=== PATIENT | female | born 1970 ===

== ENCOUNTER 2018-11-15 13:10 | Emergency (ER) | payer OTHER ==
[2018-11-15 14:50] VITALS: BP 139/79
[2018-11-15] MEDS ORDERED: Ibuprofen TAB* 600 MG PO ONE (15:45)
--- NOTE | 2018-11-15 15:45 | UC ---
Back Pain HPI - HPI Summary HPI Summary: 48-year-old woman comes in with a chief complaint of low back pain and neck pain that started on November 13, 2018 while lifting boxes at work. Patient reports lifting heavy boxes and that is when the pain started. Pain is in the low back and it radiates down the right leg. Also she's having neck pain. Both areas of pain are worse with twisting turning bending. Denies any weakness or numbness or difficulty controlling urine or bowels. She has no headache. She feels well otherwise. Pain at its worse is a 10 out of 10. She has been taking a Proventil which does help some with the pain. On triage patient found to have a fever of 101. Patient said she did not know she had a fever denies any dysuria. She has a chronic runny nose. No sore throat she does have a dry cough. No abdominal pain no dysuria. She reports that she's had a history of chronic Lyme disease but does not relate having fevers associated with the chronic Lyme disease. - History of Current Complaint Chief Complaint: UCBackPain Stated Complaint: BACK INJURY Time Seen by Provider: 11/15/18 15:15 Hx Last Menstrual Period: 11/07/18 Pain Intensity: 8 - Allergies/Home Medications Allergies/Adverse Reactions: Allergies Allergy/AdvReac Type Severity Reaction Status Date / Time Penicillins Allergy Intermediate Hives Verified 11/15/18 14:50 Home Medications: Home Medications Metoprolol/Hydrochlorothiazide [Metoprolol-Hctz 100-25 mg Tab] 1 tab PO Q8HR PRN 11/15/18 [History Confirmed 11/15/18] PMH/Surg Hx/FS Hx/Imm Hx Previously Healthy: Yes - REPORTS CHRONIC LYME DX Cardiovascular History: Other - SVT - Surgical History Surgical History: None - Family History Known Family History: Positive: Non-Contributory - Social History Alcohol Use: None Substance Use Type: None Smoking Status (MU): Never Smoked Tobacco Review of Systems All Other Systems Reviewed And Are Negative: Yes Constitutional: Positive: Negative Skin: Positive: Negative Eyes: Positive: Negative ENT: Positive: Nasal Discharge Respiratory: Positive: Cough Cardiovascular: Positive: Negative Gastrointestinal: Positive: Negative Genitourinary: Positive: Negative. Negative: Dysuria Motor: Positive: Negative Neurovascular: Negative: Decreased Sensation Musculoskeletal: Positive: Other: - SEE HPI Neurological: Positive: Negative. Negative: Headache, Weakness, Paresthesia, Numbness Psychological: Positive: Negative Is Patient Immunocompromised?: No Physical Exam Triage Information Reviewed: Yes Appearance: Well-Appearing, Well-Nourished, Pain Distress - MILD WITH ROM NECK AND LOW BACK Vital Signs: Initial Vital Signs Temp 101.1 F 11/15/18 14:44 Pulse 79 11/15/18 14:44 Resp 16 11/15/18 14:44 BP 139/79 11/15/18 14:44 Pulse Ox 99 11/15/18 14:44 Vital Signs Reviewed: Yes Eye Exam: Normal Eyes: Positive: Conjunctiva Clear ENT: Positive: Pharynx normal, TMs normal Neck: Positive: Tenderness @ - PARASPINOUS MUSCLES B/L TENDER TO PALPATION. PAIN WITH TURNING HEAD SIDE TO SIDE. Respiratory Exam: Normal Respiratory: Positive: Lungs clear, Normal breath sounds, No respiratory distress Cardiovascular: Positive: RRR Abdomen Description: Negative: CVA Tenderness (R), CVA Tenderness (L) Musculoskeletal: Positive: Other: - Patient is tender to palpation in the paraspinous muscles of the neck. She reports pain when she turns her head to the left and to the right. Arms have full range of motion full-strength with normal radial pulses normal sensation. Low back is tender in the lower lumbar area midline and also adjacent to the lower lumbar and the L5 area. There is no flank pain. Legs have normal plantarflexion and dorsiflexion knee flexion extension with full strength. Hip flexion on both sides does not increase the pain in the back and has full strength. Patellar reflexes 2+ bilaterally. Neurological: Positive: Alert, Muscle Tone Normal Psychological Exam: Normal Psychological: Positive: Age Appropriate Behavior Skin Exam: Normal Back Pain Course/Dx - Course Course Of Treatment: Patient has neck and low back pain that started acutely while lifting heavy boxes at work by history. Pain does radiate down the right leg also. This is all consistent with musculoskeletal strain. Return to treat with ibuprofen and Flexeril and follow up with occupational medicine. Patient will be out of work until cleared by medical provider. On triage patient found to have a fever of 101. Patient was not aware she had a fever. Temperature was rechecked and found to be 100.8. Patient has no sore throat she does have a little bit of runny nose and dry cough she has no flank pain no abdominal pain. She has no headache. She does have some white blood cells and blood in her urine. No UTI symptoms. Her neck does hurt when she moves it which is consistent with musculoskeletal injury. we discussed the signs and symptoms of meningitis which almost always includes headache neck pain and back pain and feeling ill. At this time she does not have all of the symptoms so she clinically does not have meningitis. I let her know if she gets this combination of symptoms she needs to go the emergency department for further evaluation and care. With the white blood cells and the blood in the urine we'll treat with Macrobid for presumed UTI. I also let the patient know that if she did continue to get worse she needs to get reevaluated in the emergency room. - Differential Dx/Diagnosis Provider Diagnosis: Low back pain radiating to right leg, Acute neck pain, UTI (urinary tract infection), Fever Discharge - Sign-Out/Discharge Documenting (check all that apply): Patient Departure All imaging exams completed and their final reports reviewed: No Studies - Discharge Plan Condition: Stable Disposition: HOME Prescriptions: Cyclobenzaprine TAB* [Flexeril 10 MG TAB*] 10 mg PO TID PRN #15 tab MDD 3 PRN Reason: Pain Ibuprofen TAB* [Motrin TAB* 600 MG] 600 mg PO Q6H PRN #30 tab PRN Reason: Pain Nitrofurantoin Monohyd/M-Cryst [Macrobid 100 mg Capsule] 100 mg PO BID #20 cap Patient Education Materials: Urinary Tract Infection in Women (ED), Fever in Adults (ED), Acute Low Back Pain (ED), Lumbar Radiculopathy (ED), Lower Back Exercises (ED), Acute Neck Pain (ED) Forms: *Work Release Referrals: Dany Velez MD [Medical Doctor] - Additional Instructions: FOLLOW UP WITH OCCUPATIONAL MEDICINE, DR VELEZ, FOR YOUR BACK AND NECK PAIN. FOLLOW UP WITH YOUR PRIMARY CARE DOCTOR FOR THE FEVER AND POSSIBLE UTI. IF YOU FEEL LIKE YOU HAVE AN INFECTION THAT IS NOT IMPROVING OR GETTING WORSE, GO TO THE EMERGENCY DEPARTMENT. GET REEVALUATED SOONER FOR ANY WORSENING OF YOUR CONDITION; WEAKNESS, NUMBNESS, HEADACHE, YOU FEEL ILL, CONTINUED FEVER, DIFFICULTY CONTROLLING BOWEL OR BLADDER OR ANY QUESTIONS OR CONCERNS. - Billing Disposition and Condition Condition: STABLE Disposition: Home
--- NOTE | 2018-11-17 16:40 | UC ---
- Progress Note Progress Note: 11/17/2018 Final urine culture: no growth Please call back patient and notify her of result. Advised to stop Nitrofuratoin PO Thank you Kera Ryan PA-C Course/Dx - Diagnoses Provider Diagnoses: Low back pain radiating to right leg, Acute neck pain, UTI (urinary tract infection), Fever Discharge - Sign-Out/Discharge Documenting (check all that apply): Post-Discharge Follow Up All imaging exams completed and their final reports reviewed: No Studies - Discharge Plan Condition: Stable Disposition: HOME Prescriptions: Cyclobenzaprine TAB* [Flexeril 10 MG TAB*] 10 mg PO TID PRN #15 tab MDD 3 PRN Reason: Pain Ibuprofen TAB* [Motrin TAB* 600 MG] 600 mg PO Q6H PRN #30 tab PRN Reason: Pain Nitrofurantoin Monohyd/M-Cryst [Macrobid 100 mg Capsule] 100 mg PO BID #20 cap Patient Education Materials: Urinary Tract Infection in Women (ED), Fever in Adults (ED), Acute Low Back Pain (ED), Lumbar Radiculopathy (ED), Lower Back Exercises (ED), Acute Neck Pain (ED) Forms: *Work Release Referrals: Dany Velez MD [Medical Doctor] - Additional Instructions: FOLLOW UP WITH OCCUPATIONAL MEDICINE, DR VELEZ, FOR YOUR BACK AND NECK PAIN. FOLLOW UP WITH YOUR PRIMARY CARE DOCTOR FOR THE FEVER AND POSSIBLE UTI. IF YOU FEEL LIKE YOU HAVE AN INFECTION THAT IS NOT IMPROVING OR GETTING WORSE, GO TO THE EMERGENCY DEPARTMENT. GET REEVALUATED SOONER FOR ANY WORSENING OF YOUR CONDITION; WEAKNESS, NUMBNESS, HEADACHE, YOU FEEL ILL, CONTINUED FEVER, DIFFICULTY CONTROLLING BOWEL OR BLADDER OR ANY QUESTIONS OR CONCERNS. - Billing Disposition and Condition Condition: STABLE Disposition: Home
== END 2018-11-15 16:30 | disposition home or self-care (01) ==
LOC: UCEAST 13:10
DX: M54.5 Low back pain (principal); Z88.0 Allergy status to penicillin; M54.2 Cervicalgia; N39.0 Urinary tract infection, site not specified; R50.9 Fever, unspecified
CPT/HCPCS: 81003; 87086; 99212; A9270-GY; G0463